=== PATIENT | male | born 1955 | race African-American/Black ===

== ENCOUNTER 2017-03-27 21:56 | Emergency (ER) | payer MEDICARE, BC ==
[~2017-03-27] VITALS: Ht 182.9 cm; Wt 78.0 kg
[~2017-03-27 21:56] MED LIST: NORCO; XANAX
[2017-03-28 02:15] LABS: BASOPHILS % 0.3 % (0.0-2.0); EOSINOPHILS % 3.1 % (0.0-5.0); HEMATOCRIT. 44.6 % (42.0-52.0); HEMOGLOBIN. 15.2 g/dL (14.0-18.0); LYMPHOCYTES % 11.4 % (20.0-50.0); MEAN CORPUSCULAR VOLUME 90.7 fL (80.0-94.0); MEAN PLATELET VOLUME 8.3 fl (7.4-10.4); MONOCYTES % 9.6 % (2.0-8.0); NEUTROPHILS % 75.6 % (40.0-76.0); PLATELET 244 x1000/uL (130-400); RED BLOOD CELL COUNT 4.92 mill/uL (4.7-6.1); RED CELL DISTRIBUTION WIDTH 13.5 % (11.6-14.6)
[2017-03-28 02:22] LABS: CHLORIDE 103 mEq/L (98-107)
[2017-03-28 02:31] LABS: CARBON DIOXIDE 28 mEq/L (21-32); ETHANOL BLOOD < 10 mg/dL
[2017-03-28 04:33] LABS: CLARITY URINE CLEAR (CLEAR); COLOR URINE YELLOW (YELLOW); GLUCOSE URINE NEGATIVE (NEGATIVE); KETONES URINE TRACE (NEGATIVE); LEUKOCYTE ESTERASE URINE NEGATIVE (NEGATIVE); NITRITE URINE NEGATIVE (NEGATIVE); OCCULT BLOOD URINE NEGATIVE (NEGATIVE); PH URINE 5.5 (4.5-8.0); PROTEIN URINE NEGATIVE (NEGATIVE); SPECIFIC GRAVITY URINE 1.015 (1.005-1.030)
[2017-03-28 05:10] LABS: *AMPHETAMINES SCREEN URINE NEGATIVE (NEGATIVE); *BARBITURATES SCREEN URINE NEGATIVE (NEGATIVE); *BENZODIAZEPINES SCREEN URINE NEGATIVE (NEGATIVE); *COCAINE SCREEN URINE PRESUMTIVE POSITIVE (NEGATIVE); CANNABINOID URINE SCREEN NEGATIVE (NEGATIVE); METHADONE URINE SCREEN NEGATIVE (NEGATIVE); OPIATES URINE SCREEN NEGATIVE (NEGATIVE); PHENCYCLIDINE URINE SCREEN NEGATIVE (NEGATIVE)
[2017-03-28 11:32] VITALS: BP 143/93
== END 2017-03-28 11:37 | disposition home or self-care (01) ==
LOC: ER 21:56
DX: R44.0 Auditory hallucinations (principal); F20.9 Schizophrenia, unspecified; F32.9 Major depressive disorder, single episode, unspecified; F41.9 Anxiety disorder, unspecified
CPT/HCPCS: 36415; 80053; 80305; 80307; 80329; 81003; 85025; 99284; G0482

== ENCOUNTER 2020-12-07 08:57 | Emergency (ER) | payer MEDICARE, MEDICAID ==
[~2020-12-07] VITALS: Ht 182.9 cm; Wt 72.0 kg
[2020-12-07] MEDS ORDERED: IBUPROFEN 600MG TABLET PO ONE (09:45)
[2020-12-07] MEDS ORDERED: OFLO5DRO4 RIGHT EAR (09:46)
[2020-12-07] MEDS ORDERED: TOPUD PO (09:47)
[2020-12-07 10:00] VITALS: BP 132/78
== END 2020-12-07 10:00 | disposition home or self-care (01) ==
LOC: ER 09:22
DX: T16.1XXA Foreign body in right ear, initial encounter (principal); H60.91 Unspecified otitis externa, right ear; X58.XXXA Exposure to other specified factors, initial encounter; Y93.89 Activity, other specified; Y92.018 Other place in single-family (private) house as the place of occurrence of the external cause
CPT/HCPCS: 99283

== ENCOUNTER 2022-12-19 00:33 | Emergency (ER) | payer MEDICAID, MEDICARE, OTHER ==
[~2022-12-19] VITALS: Ht 185.4 cm; Wt 84.0 kg
[~2022-12-19 00:33] MED LIST changes: +OFLO5DRO4 RIGHT EAR; +TOPUD PO
[2022-12-19] MEDS ORDERED: IBUPROFEN 400MG TABLET PO ONE (03:30)
[2022-12-19] MEDS ORDERED: ACETAMINOPHEN 325MG TABLET PO ONE (03:30)
[2022-12-19 04:09] VITALS: BP 135/68
[2022-12-19] MEDS ORDERED: IBUP-2028 MT (04:24)
== END 2022-12-19 04:47 | disposition home or self-care (01) ==
LOC: ER 00:33
DX: F43.89 Other reactions to severe stress (principal); M79.10 Myalgia, unspecified site; Z59.00 Homelessness unspecified
CPT/HCPCS: 99283

== ENCOUNTER 2023-01-28 12:45 | Emergency (ER) | payer OTHER ==
[~2023-01-28] VITALS: Ht 182.9 cm; Wt 77.0 kg
[~2023-01-28 12:45] MED LIST changes: +IBUP-2028 MT
[2023-01-28] MEDS ORDERED: ACETAMINOPHEN 325MG TABLET PO ONE (15:45)
[2023-01-28] MEDS ORDERED: TETRACAINE 0.5% OPHTH DROPS 4ML BOTHEYE ONE (15:45)
[2023-01-28] MEDS ORDERED: FLUORESCEIN SODIUM 1MG/STRIP BOTHEYE ONE (15:45)
[2023-01-28] MEDS ORDERED: ACET-2708 MT (16:10)
[2023-01-28 16:39] VITALS: BP 131/74
== END 2023-01-28 16:41 | disposition home or self-care (01) ==
LOC: ER 13:23
DX: H57.89 Other specified disorders of eye and adnexa (principal); Z59.00 Homelessness unspecified
CPT/HCPCS: 99283; 99284

== ENCOUNTER 2023-04-22 22:54 | Emergency (ER) | payer OTHER ==
[~2023-04-22] VITALS: Ht 182.9 cm; Wt 77.0 kg
[~2023-04-22 22:54] MED LIST changes: +ACET-2708 MT
[2023-04-22 23:03] VITALS: O2SAT 98
[2023-04-23 00:26] VITALS: BP 132/73; PULSE 74; RESP 16
[2023-04-23] MEDS ORDERED: TOPUD MT (00:28)
[2023-04-23] MEDS ORDERED: CYCL10TA21 MT (00:28)
[2023-04-23] MEDS ORDERED: ACETAMINOPHEN 325MG TABLET PO ONE (00:30)
[2023-04-23 00:44] VITALS: TEMP 98.3
== END 2023-04-23 00:53 | disposition home or self-care (01) ==
LOC: ER 04-23 00:03
DX: M54.9 Dorsalgia, unspecified (principal); Z76.0 Encounter for issue of repeat prescription
CPT/HCPCS: 99282

== ENCOUNTER 2023-08-07 14:55 | Emergency (ER) | payer OTHER ==
[~2023-08-07] VITALS: Ht 182.9 cm; Wt 80.2 kg
[~2023-08-07 14:55] MED LIST changes: +CYCL10TA21 MT; +TOPUD MT
[2023-08-07 15:50] VITALS: BP 124/74; PULSE 111; RESP 16; TEMP 98.7; O2SAT 99
[2023-08-07] MEDS ORDERED: MUPI15CR11 TP (17:43)
[2023-08-07] MEDS ORDERED: DEXT15DR29 EACHEYE (17:43)
== END 2023-08-07 18:48 | disposition home or self-care (01) ==
LOC: ER 15:56
DX: L98.491 Non-pressure chronic ulcer of skin of other sites limited to breakdown of skin (principal); M54.50 Low back pain, unspecified; G89.29 Other chronic pain; Z79.899 Other long term (current) drug therapy
CPT/HCPCS: 99283